=== PATIENT | female | born 1990 | race Caucasian/White ===

== ENCOUNTER 2023-01-21 15:36 | Outpatient (RCR) | payer OTHER, SELFPAY ==
[2023-01-23] MEDS: RHO(D) IMMUNE GLOBULIN 300 MCG/2 ML SYRINGE IM (12:04)
== END 2023-04-21 23:59 | disposition home or self-care (01) ==
LOC: ANHLAB 15:36
PROVIDERS: PCP Internal Medicine; Visit Provider Obstetrics & Gynecology
DX: Z29.13 Encounter for prophylactic Rho(D) immune globulin (principal); O36.0130 Maternal care for anti-D [Rh] antibodies, third trimester, not applicable or unspecified; Z3A.00 Weeks of gestation of pregnancy not specified
CPT/HCPCS: 36415; 85461; 86850; 86900; 86901; 90384; 96372; J2790

== ENCOUNTER 2023-04-07 05:01 | Inpatient (IN) | payer OTHER, SELFPAY ==
[2023-04-07] VITALS (193 sets, daily range): BP systolic 118–137; BP diastolic 65–85; PULSE 25–108; RESP 16–18; TEMP 36.3–36.6; O2SAT 82–100; BMI 37.0
--- NOTE | 2023-04-07 05:01 | LDADM ---
This patient, Charla Velarde, was admitted to Labor/Delivery/Recovery 103 on 04/07/23 at 05:01. Plans for labor, pain management and were discussed with patient. Patient/family oriented to hospital policies and general routines including ID bracelet, bed and alarms, visiting hours, pain management, procedures, bathroom and other care routines, personal items, smoking policy, room service/diet and guest tray routines, security routines, and visiting hours. Patient/Family are encouraged to report perceived risks to care and to ask questions if they do not understand what they are told or what they should do. See OBIX for further documentation.
[2023-04-07 06:06] LABS: Basophils Absolute Auto 0.1 K/mm3 (0.0-0.1); Basophils Percent Auto 0.6 % (0.2-1.2); Eosinophils Absolute Auto 0.4 K/mm3 (0-0.3); Eosinophils Percent Auto 3.7 % (0-4.4); Hematocrit 34.3 % (37.0-47.0); Immature Granulocyte Percent A 0.9 % (0-0.5); Lymphocytes Absolute Auto 1.54 K/mm3 (0.9-3.2); Lymphocytes Percent Auto 14.5 % (18.3-44.2); Mean Corpuscular HGB Conc 32.1 g/dl (32-36); Mean Corpuscular Hemoglobin 25.8 pg (26-34); Mean Corpuscular Volume 80.3 fl (80-100); Monocytes Absolute Auto 0.7 K/mm3 (0.1-0.6); Monocytes Percent Auto 6.2 % (2.6-8.5); Neutrophils Absolute Auto 7.9 K/mm3 (1.3-6.7); Neutrophils Percent Auto 74.1 % (45.5-73.1); Platelet Count Result 270 k/mm3 (150-375); Red Blood Count 4.27 M/mm3 (4.2-5.4); Red Cell Distribution Width 14.1 % (11.5-14.5); White Blood Count 10.6 K/mm3 (4.5-10.0)
[2023-04-07] MEDS: miSOPROStol 25 MCG TABLET 50 MCG PO ×3 (07:06→17:46)
[2023-04-07] MEDS: LACTATED RINGERS 1,000 ML 125 ML IV CONT (11:38)
--- NOTE | 2023-04-07 13:03 | PM.IMHP ---
H&P: HPI History of Present Illness Date/Time: 04/07/23 0800 Chief Complaint: Elective induction of labor Narrative: Patient presents for elective induction of labor. complicated by suspected LGA fetus, last measuring 98% EFW at 36 weeks. She also has a circumvallate placenta and has been followed with serial growth US. No ctx, LOF, VB. Good movement. Denies headaches, vision changes, chest pain, dyspnea, RUQ pain or epigastric pain. Review of Systems Review of Systems: All systems reviewed & are unremarkable except as noted in HPI and below PMFSH Family History Family History Other No problems noted. Sibling Asthma Mother Asthma Father Hypertension Social History Social History Smoking status: Never smoker Substance use: never Do You Feel Safe in your Home?: Yes Lack of Transportation: YES Lack of Food: Never True Current Housing: I Have Housing Concerned About Future Housing: No Difficulty Paying Gas/Electric Bills: No Difficulty Paying for Meds: No Currently Unemployed: No Education: Bachelor's Degree Difficulty w/ Childcare or Family Care: No Spiritual care concerns: No Meds Home Medications and Allergies Home Medications Medication Instructions Recorded Confirmed Type vits no.126-ferrous fum 1 tablet PO DAILY 03/19/23 03/19/23 History 28 mg iron-folic acid 800 mcg tablet (Classic ) Allergies Allergy/AdvReac Type Severity Reaction Status Date / Time No Known Allergies Allergy Unknown Verified 03/19/23 13:20 Vital Signs Vital Signs - 24 hr 04/07/23 05:54 04/07/23 06:23 04/07/23 06:00 Temperature 97.8 F Pulse Rate 92 Respiratory Rate 16 Blood Pressure 133/85 Pulse Oximetry Oxygen Delivery Room Air 04/07/23 08:28 04/07/23 08:33 04/07/23 08:38 Temperature Pulse Rate Respiratory Rate Blood Pressure Pulse Oximetry 99 99 100 Oxygen Delivery 04/07/23 08:43 04/07/23 08:48 04/07/23 08:53 Temperature Pulse Rate Respiratory Rate Blood Pressure Pulse Oximetry 100 99 100 Oxygen Delivery 04/07/23 08:58 04/07/23 09:03 04/07/23 09:08 Temperature Pulse Rate Respiratory Rate Blood Pressure Pulse Oximetry 98 97 98 Oxygen Delivery 04/07/23 09:13 04/07/23 09:18 04/07/23 09:23 Temperature Pulse Rate Respiratory Rate Blood Pressure Pulse Oximetry 99 99 100 Oxygen Delivery 04/07/23 09:28 04/07/23 09:33 04/07/23 09:38 Temperature Pulse Rate Respiratory Rate Blood Pressure Pulse Oximetry 99 100 99 Oxygen Delivery 04/07/23 09:40 04/07/23 09:42 04/07/23 09:42 Temperature Pulse Rate Respiratory Rate Blood Pressure Pulse Oximetry 90 98 82 L Oxygen Delivery 04/07/23 09:45 04/07/23 09:50 04/07/23 09:55 Temperature Pulse Rate Respiratory Rate Blood Pressure Pulse Oximetry 100 100 99 Oxygen Delivery 04/07/23 10:00 04/07/23 10:05 04/07/23 10:10 Temperature Pulse Rate Respiratory Rate Blood Pressure Pulse Oximetry 99 98 100 Oxygen Delivery 04/07/23 10:15 04/07/23 10:20 04/07/23 10:25 Temperature Pulse Rate Respiratory Rate Blood Pressure Pulse Oximetry 98 98 99 Oxygen Delivery 04/07/23 10:30 04/07/23 10:35 04/07/23 10:40 Temperature Pulse Rate Respiratory Rate Blood Pressure Pulse Oximetry 98 99 99 Oxygen Delivery 04/07/23 10:45 04/07/23 10:50 04/07/23 10:54 Temperature Pulse Rate 90 Respiratory Rate Blood Pressure 128/69 Pulse Oximetry 98 97 Oxygen Delivery 04/07/23 10:55 04/07/23 11:03 04/07/23 11:03 Temperature 97.3 F L Pulse Rate Respiratory Rate 18 Blood Pressure Pulse Oximetry 97 99 98 Oxygen Delivery 04/07/23 11:08 04/07/23 11:13 03/11
[2023-04-07 14:31] LABS: Rapid Plasma Reagin Non-Reactive (NonReactive)
[2023-04-07] MEDS: OXYTOCIN 30 UNITS/NS 500 ML 30 UNITS/500 ML BAG 6 UNITS IV CONT (23:01)
[2023-04-08] VITALS (369 sets, daily range): BP systolic 89–148; BP diastolic 44–92; PULSE 25–176; RESP 16–18; TEMP 36.3–37.2; O2SAT 86–100
[2023-04-08] MEDS: LACTATED RINGERS 1,000 ML 125 ML IV CONT ×3 (02:13→11:01)
--- NOTE | 2023-04-08 08:15 | PM.OBPNLAB ---
Pain Control Date/time seen: 04/08/23 08:15 Pain control: tolerating well Pelvic Exam Dilation (cm): 2 Effacement (%): 50 station: -2 Amniotic membrane status: Ruptured Comments: AROM of large amount of clear fluid Contractions Monitor mode: External Status status: Category l
[2023-04-08] MEDS: ONDANSETRON INJ 4 MG/2 ML VIAL IV PUSH ×2 (13:40→23:47)
[2023-04-09] VITALS (57 sets, daily range): BP systolic 104–151; BP diastolic 48–90; PULSE 72–156; RESP 16; TEMP 36.3–37.4; O2SAT 90–100
[2023-04-09] MEDS: OXYTOCIN 30 UNITS/NS 500 ML 30 UNITS/500 ML BAG 999 UNITS IV CONT (01:39)
--- NOTE | 2023-04-09 01:58 | PM.OBPRVD ---
OB - Vaginal Delivery Note Procedure Delivery date: 04/09/23 Events: Elective Induction of Labor Induction method: Per Misoprostol Protocol Delivery augmentation: Rupture of Membranes and Pitocin Delivery monitor: External FHT and Internal Uterine Route of delivery: Episiotomy description: None Laceration Description: Perineal - 1st Degree Delivery repair: vicryl Specimen: No Quantitative Blood Loss (ml): 100 Anesthesia type: Epidural Disposition: Floor Complications: No immediate complications Narrative: See H&P and notes for details on patient's admission and labor. She progressed to complete cervical dilation and at the appropriate time began pushing. With adequate expulsive efforts by the mother, the baby's head was delivered without difficulty. Nuchal cord was present x1 and easily reduced. The baby's left shoulder was anterior and delivered under the pubic symphysis without difficulty. The posterior shoulder and the rest of the baby delivered without difficulty. The umbilical cord was doubly clamped and cut after 10 seconds of delayed cord clamping. Care of the was then assumed by the nursing staff. Baby Date of : 04/09/23 Weeks of gestation at delivery: 39 Infant gender: Female Weight (pounds): 8 Weight (ounces): 14 presentation: vertex position: Left Occiput Anterior Placenta delivery description: Expressed Cord Vessel Description: 3 Vessels
[2023-04-09] MEDS: OXYTOCIN 30 UNITS/NS 500 ML 30 UNITS/500 ML BAG 125 UNITS IV CONT (01:59)
[2023-04-09] MEDS: MULTIVIT/MIN/PREN/FOL AC/IRON TABLET 1 TAB PO (08:34)
[2023-04-09] MEDS: IBUPROFEN 600 MG TABLET PO (08:34)
[2023-04-09] MEDS: LANOLIN (LANSINOH) 7.5 GM CREAM 1 APPLIC TOPICAL (08:35)
--- NOTE | 2023-04-09 10:38 | PM.OBPNVD ---
OB - PN: Subj Subjective Date/time seen: 04/09/23 10:38 Interval history: PPD#0 Doing well, pain well controlled Baby latching, no issues with feeding currently, watching blood sugars for LGA Bleeding stable Voiding without issue OB - PN: Obj Data Labs 04/07/23 05:39 OB - PN A/P Plan day: 0 Plan: routine care Time Spent With Patient Time: Total time spent is greater than 50% in coordination of care (as documented) at patient's floor/unit and/or counseling patient: Review of Systems Review of Systems: All systems reviewed & are unremarkable except as noted in HPI and below Exam Const: General: comfortable and no acute distress HENMT: Mouth: Yes moist mucous membranes Resp: Effort & Inspection: normal respiratory effort Cardio: Rate: regular rate Skin: General skin exam: normal color Extrem: General: normal to inspection Psych: Mental Status: mental status grossly normal
--- NOTE | 2023-04-09 16:44 | PC.NURSE ---
[id number] Introductions were made and RN LUCIANO assessed for needs after blood sugar was resulted at 64mg/dl and warmed under the nursery warmer after temperature resulted in 96.8. Encouraged the benefits of [id number] with infant. Mother demonstrated her ability to independently latch with appropriate positioning, alignment to the left breast using football positioning. She denies any nipple discomfort and is responsively . Infant demonstrates appropriate rocking jaw motion, suck/swallow/pause ratios, and nice rounded cheek line. Infant is currently meeting outcomes for weight, output, jaundice, blood sugar and feeding frequencies of 8-12 times in 24 hours. Mother declines any additional assistance or education at this time. Mother is encouraged to call for assistance if her infant doesn?t latch, pain with latching, questions or concerns. Mother voiced understanding of information shared along with the mom/baby guide for an additional resource. Reported to the Primary RN.
[2023-04-09] MEDS: DOCUSATE SODIUM 100 MG CAPSULE PO (17:19)
[2023-04-10 04:00] VITALS: BP 117/61; PULSE 75; RESP 16; TEMP 36.7; O2SAT 100
[2023-04-10 04:49] LABS: Hematocrit 28.4 % (37.0-47.0); Hemoglobin 9.1 g/dL (12.0-15.0)
[2023-04-10 08:10] VITALS: BP 114/61; PULSE 85; RESP 18; TEMP 36.8; O2SAT 98
--- NOTE | 2023-04-10 08:33 | WPDANLDPN2 ---
Anes-Prog Note L&D Date/Time: 04/10/23 08:33 Comfortable throughout: labor and delivery Neuraxial method: epidural Epidural/Spinal procedure site: clean & non-tender Neuro status: Neuro function grossly intact. Cardiovascular status: normal Respiratory status: normal Airway patency: baseline Mental status: baseline Post-Op hydration status: normal Vital Signs: Last Vital Signs Temp 36.7 C 04/10/23 04:00 Pulse 75 04/10/23 04:00 Resp 16 04/10/23 04:00 BP 117/61 04/10/23 04:00 Pulse Ox 100 04/10/23 04:00 O2 Del Method Room Air 04/10/23 04:00 Pain score (VAS): 0 Post-procedural complaints: none Patient feedback: Patient satisfied with anesthetic care.
[2023-04-10] MEDS: DOCUSATE SODIUM 100 MG CAPSULE PO ×2 (08:42→17:01)
[2023-04-10] MEDS: MULTIVIT/MIN/PREN/FOL AC/IRON TABLET 1 TAB PO (08:42)
[2023-04-10] MEDS: POLYSACCHARIDE IRON COMPLEX 150 MG CAPSULE PO ×2 (08:42→17:01)
--- NOTE | 2023-04-10 08:57 | PM.OBPNVD ---
OB - PN: Subj Subjective Date/time seen: 04/10/23 08:57 Interval history: PPD#0 Doing well, pain well controlled Baby latching, no issues with feeding currently, watching blood sugars for LGA Bleeding stable Voiding without issue Patient comments: no complaints, pain well controlled, incisional pain, tolerating diet and flatus present OB - PN: Obj Data Labs 04/10/23 03:37 Labs: Laboratory Results - last 24 hr 04/10/23 03:37 Hgb 9.1 L Hct 28.4 L Blood Type B Negative Antibody Screen Negative Screen Negative Baby's Blood Type O pos Baby's MIGUELITO Negative Doses of RhIg Required 1 OB - PN A/P Plan day: 1 Plan: routine care Comments: No problems, routine care Time Spent With Patient Time: Total time spent is greater than 50% in coordination of care (as documented) at patient's floor/unit and/or counseling patient: Exam Const: General: comfortable, no acute distress and alert Resp: Effort & Inspection: normal respiratory effort Auscultation: no crackles, no rales and no rhonchi Cardio: Rate: regular rate Heart sounds: no click, no murmurs and no rubs GI: Inspection: non-distended GI Palp: No Tenderness to palpation present (GI) Auscultation: normal bowel sounds Other: Incision - CDI Extrem: General: normal to inspection, no pedal edema and no calf tenderness
[2023-04-10] MEDS: RHO(D) IMMUNE GLOBULIN 300 MCG/2 ML SYRINGE IM (11:10)
[2023-04-10] MEDS: WITCH HAZEL 40 PADS 1 PAD TOPICAL (13:56)
--- NOTE | 2023-04-10 16:52 | PC.NURSE ---
[id number] Purposefully rounded to assess for needs. Discussed and answered mothers questions. Mother is concerned about the bruising on the left areola and nipple from feedings last night. Encouraged skin to skin and requesting assistance latching on the left breast to assess for positioning and latch. Mother works well with her with encouragement and education. Resources used for education were facilitated with the visual educational handouts, tool, mom and baby guide. Inpatient resource with name written on the communication board. Parents voiced understanding of information, demonstrated learning and will call if there is a request for assistance. 1525 - Mother called RN to the room to assess latching. is swaddled with father of baby. Encouraged [id number] and stimulating infant for wakefulness. Infant is meeting requirements and has hands open with arms relaxed while quiet, alert, and awake after S2S and stimulation. burps 3 times. Parents were encouraged that infant is meeting the goals. Mother is confident to latch infant independently. RN LC name remains on the communication board and parents are encouraged to call for assistance if infant doesn't latch or there's pain with latching. Mother voiced understanding of when to call for assistance.
[2023-04-11 00:15] VITALS: BP 119/72; PULSE 67; RESP 16; TEMP 36.7; O2SAT 100
--- NOTE | 2023-04-11 08:03 | PM.OBPNVD ---
OB - PN: Subj Subjective Date/time seen: 04/11/23 08:03 Interval history: PPD#2 Doing well, pain well controlled Baby latching, no issues with feeding currently Bleeding stable Voiding without issue OB - PN: Obj Data Labs 04/10/23 03:37 Labs: Laboratory Results - last 24 hr 04/10/23 03:37 Blood Type B Negative Antibody Screen Negative Screen Negative Baby's Blood Type O pos Baby's MIGUELITO Negative Doses of RhIg Required 1 OB - PN A/P Plan day: 2 Plan: routine care and discharge home Time Spent With Patient Time: Total time spent is greater than 50% in coordination of care (as documented) at patient's floor/unit and/or counseling patient: Review of Systems Review of Systems: All systems reviewed & are unremarkable except as noted in HPI and below Exam Const: General: cooperative and healthy appearing Chest: Chest palpation & inspection: normal inspection of the chest Cardio: Rate: regular rate Skin: General skin exam: normal color Neuro: General: patient oriented x3 Extrem: Right lower extremity: normal to inspection Left lower extremity: normal to inspection
--- NOTE | 2023-04-11 08:05 | PM.OBDSVD ---
DS: Admitting Diagnosis Discharge Date 04/11/23 Admitting Diagnosis IOL DS: Discharge Diagnosis Discharge Diagnosis (1) Vaginal delivery: Code(s): O80 - Encounter for full-term uncomplicated delivery Status: Acute OB - DS: Summary OB Procedures : None OB Procedures Intrapartum: Spontaneous Vag Delivery OB Procedures: : None Peripartum Data Laceration Description: Perineal - 1st Degree Episiotomy description: None Time Spent with Patient Time attestation: Total time spent providing and/or coordinating discharge services: DS: Data Data Completed and Pending Labs on day of discharge: Labs from last 24 hours 04/10/23 03:37 Blood Type B Negative Antibody Screen Negative Screen Negative Baby's Blood Type O pos Baby's MIGUELITO Negative Doses of RhIg Required 1 Discharge Plan Discharge Attending physician on discharge: Yovany Garcia Discharging Clinician: Lauren Calabrese Patient Disposition: Home, Self-Care Activity: pelvic rest Diet: regular Patient Instructions: Antibiotic Form Stand Alone Forms: General Discharge Information Follow-up/Referrals: Yovany Garcia MD [Physician] - 4 Weeks Discharge Medications: New ibuprofen 600 mg Tablet 600 mg PO Q6H PRN (Reason: Cramping) Qty: 30 0RF Continued Classic 28 mg iron- 800 mcg Tablet 1 tablet PO DAILY Date of admission: 04/07/23 05:01 Primary Care Provider: PHYSICIAN,TECHNOLOGY APPLICATIONS CONSULTANT Admitting Provider: Yovany Garcia Attending physician on admission: Yovany Garcia Condition: Stable
[2023-04-11 08:11] VITALS: BP 112/50; PULSE 74; RESP 16; TEMP 36.6; O2SAT 100
[2023-04-11] MEDS: POLYSACCHARIDE IRON COMPLEX 150 MG CAPSULE PO (10:13)
[2023-04-11] MEDS: DOCUSATE SODIUM 100 MG CAPSULE PO (10:14)
[2023-04-11] MEDS: MULTIVIT/MIN/PREN/FOL AC/IRON TABLET 1 TAB PO (10:14)
--- NOTE | 2023-04-11 14:35 | PC.NURSE ---
[id number] Mother led the conversation with her experience so far, plan to feed her , and demonstrated her ability to independently latch infant optimally without discomfort. Reminded mother to use good handwashing technique to prevent infection. Mother is feeding appropriately for growth of , understanding stimulating to eat, and watching for swallowing which is demonstrating. Infant has had appropriate feedings in the last 24 hours meets the outcomes for weight, output, blood sugar and jaundice at this time. Mother states she is confident to continue effectively her infant at home, when to call for assistance, denies any additional assistance or education at this time. Reinforced understanding of milk production, transition of milk, signs of adequate intake, transition of stool, prevention/relief of engorgement, plugged ducts, mastitis, responsive watching for feeding cues, the different methods of stimulating infant to breastfeed 1-3 hours after the start of the last feeding, community resources, and when to call a provider using the resource of the feeding sheet, and the mom and baby guide. Mother voiced understanding of the education shared.
[2023-04-12 09:28] VITALS: BP 123/73; PULSE 71; RESP 18; TEMP 37; O2SAT 98
== END 2023-04-11 11:16 | disposition home or self-care (01) | DRG 807 ==
LOC: ANHLDR 05:08 → ANHOB2 04-09 04:27
PROVIDERS: Admitting Provider Obstetrics & Gynecology; Visit Provider Obstetrics & Gynecology
DX: O36.63X0 Maternal care for excessive fetal growth, third trimester, not applicable or unspecified (principal); Z37.0 Single live birth; O43.113 Circumvallate placenta, third trimester; O70.0 First degree perineal laceration during delivery; O69.81X0 Labor and delivery complicated by cord around neck, without compression, not applicable or unspecified; Z3A.36 36 weeks gestation of pregnancy
CPT/HCPCS: 36415; 85014; 85018; 85025; 85461; 86592; 86850; 86900; 86901; 90384; A9270; J2405; J2590; J2790; J2795; J7120